=== PATIENT | male | born 1955 | race Caucasian/White ===

== ENCOUNTER 2016-08-26 10:10 | Emergency (ER) | payer OTHER ==
[~2016-08-26] VITALS: Ht 188 cm; Wt 77.1 kg
--- NOTE | 2016-08-26 10:13 | NUR ---
Pt placed in bed 7 by EMS.
--- NOTE | 2016-08-26 10:16 | NUR ---
Dr. Otoole at bedside evaluating patient at bedside.
[2016-08-26 10:23] VITALS: BP 139/92
[2016-08-26] MEDS ORDERED: ELIQUIS2.5 MG PO (10:27)
[2016-08-26] MEDS ORDERED: NATURE'S BLEND1 TA9 PO (10:27)
[2016-08-26] MEDS ORDERED: FERROUS SULFAT325 MG PO (10:27)
[2016-08-26] MEDS ORDERED: TYLENOL EXTRA500 M3 PO (10:27)
[2016-08-26] MEDS ORDERED: PERCOCET 325 MG1 TA4 PO (10:27)
[2016-08-26] MEDS ORDERED: NEURONTIN100 MG PO (10:27)
[2016-08-26] MEDS ORDERED: LIPITOR40 MG PO (10:27)
[2016-08-26] MEDS ORDERED: DILANTIN100 MG PO (10:27)
[2016-08-26] MEDS ORDERED: LOPRESSOR25 MG PO (10:27)
[2016-08-26] MEDS ORDERED: MAGNESIUM OXID400 M1 PO (10:27)
[2016-08-26] MEDS ORDERED: OMEPRAZOLE20 M3 PO (10:27)
[2016-08-26] MEDS ORDERED: SEROQUEL100 MG PO (10:27)
[2016-08-26] MEDS ORDERED: KEPPRA1000 MG PO (10:27)
[2016-08-26] MEDS ORDERED: TYLENOL325 M2 PO (10:27)
--- NOTE | 2016-08-26 10:29 | NUR ---
61/M ngozi from [facility] for evaluation of lower back pain since yesterday. Per report from Jojo from facility, patient had a fall out of w/c yesterday and they called 911 but patient refused to go to ED and be evaluated. Pt woke up today c/o right hip pain and lower back pain. Patient states the pain worsened last night and even more today. Pt c/o 810 pain to lower back, severe, constant, 02/18. Patient states he had a right hip reduction approximately 2 weeks ago. Patient states "I was in my wheelchair and was trying to hold the door open and get through and fell out of my chair." Patient denies loss of conciousness. Patient is AOX4, clear speech. No deformity noted to right hip. Pt complaining more of back pain. Patient is calm and relaxed at this time. Assisted into a gown. Placed on residential fee appraiser, pulse oximeter and blood pressure monitoring. VSS at this time. No visible signs of distress noted.
[2016-08-26] MEDS ORDERED: HYDROmorphone PFS 2 MG/ML SYR IM ONE ×2 (10:30→11:55)
--- NOTE | 2016-08-26 10:39 | NUR ---
Patient taken to x-ray via gurney.
--- NOTE | 2016-08-26 11:01 | NUR ---
Patient returned from x-ray.
--- NOTE | 2016-08-26 11:13 | NUR ---
Patient resting comfortably at this time. No visible signs of distress noted.
--- NOTE | 2016-08-26 11:51 | NUR ---
Patient found sitting in bed with laptop in lap. Patient reports "The pain has come back to an 8/10 now. The medication has pretty much worn off." Dr. Otoole made aware of patient status.
--- NOTE | 2016-08-26 12:12 | NUR ---
Spoke with Gabi Charge nurse at [facility] and gave her report and update about patient condition. She stated to have us call [facility] and set up transfer for patient to return to facility.
[2016-08-26] MEDS ORDERED: cloNIDine 0.1 MG TAB PO ONE (12:30)
[2016-08-26 13:04] VITALS: BP 124/80
--- NOTE | 2016-08-26 13:04 | NUR ---
Patient discharged with v/s stable. Written and verbal after care instructions given and explained. Patient verbalized understanding. [facility]ulance Transport with to [facility]. All questions addressed prior to discharge. Advised to follow up with PMD.
--- NOTE | 2016-08-26 13:04 | NUR ---
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
--- NOTE | 2016-08-26 13:05 | NUR ---
Chart checked and completed. The patient's care was reviewed and supervised by Shantelle Kern RN.
--- NOTE | 2016-08-26 13:41 | NUR ---
Report given to [facility]. Pt transferred to [facility] and will be taken back to [facility].
--- NOTE | 2016-08-26 13:45 | NUR ---
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
== END 2016-08-26 13:04 | disposition home or self-care (01) ==
LOC: MED 10:18
DX: M54.41 Lumbago with sciatica, right side (principal); R03.0 Elevated blood-pressure reading, without diagnosis of hypertension; G89.29 Other chronic pain; Z98.890 Other specified postprocedural states
CPT/HCPCS: 72100; 73502; 81002; 96372; 99284; J1170

== ENCOUNTER 2016-09-05 00:22 | Emergency (ER) | payer OTHER ==
[~2016-09-05] VITALS: Ht 195.6 cm; Wt 83.9 kg
[~2016-09-05 00:22] MED LIST: DILANTIN100 MG PO; ELIQUIS2.5 MG PO; FERROUS SULFAT325 MG PO; KEPPRA1000 MG PO; LIPITOR40 MG PO; LOPRESSOR25 MG PO; MAGNESIUM OXID400 M1 PO; NATURE'S BLEND1 TA9 PO; NEURONTIN100 MG PO; OMEPRAZOLE20 M3 PO; PERCOCET 325 MG1 TA4 PO; SEROQUEL100 MG PO; TYLENOL EXTRA500 M3 PO; TYLENOL325 M2 PO
--- NOTE | 2016-09-05 00:22 | NUR ---
Patient BIBA and taken to bed 04. Dr. Pappas evaluated patient.
[2016-09-05 00:33] VITALS: BP 133/78
[2016-09-05] MEDS ORDERED: MORPHINE SULFATE 10 MG/ML SYR IM ONE (00:35)
--- NOTE | 2016-09-05 00:35 | NUR ---
61Y M KARLIE MEEHAN FROM [facility] C/O OF RT HIP PAIN. PAIN 7/10 IN SCALE. HX OF SOL HIP SX.
--- NOTE | 2016-09-05 00:40 | NUR ---
Patient moving to bed 06.
[2016-09-05] MEDS ORDERED: HYDROmorphone 1 MG/ML AMP IM ONE ×2 (01:05→02:10)
[2016-09-05 05:45] VITALS: BP 125/75
--- NOTE | 2016-09-05 05:45 | NUR ---
Patient discharged with v/s stable. Written and verbal after care instructions given and explained BY DR BRENNAN. Patient alert, oriented and verbalized understanding of instructions. [facility]. All questions addressed prior to discharge. ID band removed. Patient advised to follow up with PMD. Rx of ULTRAM given. Patient educated on indication of medication including possible reaction and side effects. Opportunity to ask questions provided and answered BY DR BRENNAN.
== END 2016-09-05 05:45 | disposition home or self-care (01) ==
LOC: MED 00:22
DX: S76.011A Strain of muscle, fascia and tendon of right hip, initial encounter (principal); I10 Essential (primary) hypertension; I48.91 Unspecified atrial fibrillation; Z86.73 Personal history of transient ischemic attack (TIA), and cerebral infarction without residual deficits; X58.XXXA Exposure to other specified factors, initial encounter; Y93.89 Activity, other specified; Y92.89 Other specified places as the place of occurrence of the external cause; Y99.8 Other external cause status
CPT/HCPCS: 96372; 99284; J1170; J2270